=== PATIENT | female | born 1955 | race Caucasian/White ===

== ENCOUNTER 2021-06-07 11:15 | Emergency (ER) | payer MEDICARE ==
[~2021-06-07] VITALS: Ht 157.5 cm; Wt 63.0 kg
[2021-06-07 11:22] VITALS: BP 141/81
== END 2021-06-07 11:38 | disposition home or self-care (01) ==
LOC: ER 11:16
DX: M25.561 Pain in right knee (principal); F17.200 Nicotine dependence, unspecified, uncomplicated
CPT/HCPCS: 99282

== ENCOUNTER 2024-06-17 13:27 | Emergency (ER) | payer MEDICARE, MEDICAID ==
[~2024-06-17] VITALS: Ht 172.7 cm; Wt 64.8 kg
[2024-06-17 13:34] VITALS: BP 144/95; PULSE 93; RESP 18; O2SAT 98
== END 2024-06-17 16:39 | disposition left against medical advice (07) ==
LOC: ER 13:28
DX: M25.511 Pain in right shoulder (principal); Z53.21 Procedure and treatment not carried out due to patient leaving prior to being seen by health care provider